=== PATIENT | female | born 1955 | race Caucasian/White ===

== ENCOUNTER → 2017-01-26 | Outpatient (CLI) | payer BC ==
[2016-11-20 14:08] VITALS: BP 133/46
[~2017-01-26] MED LIST: ASPI325T4 PO; CHOL4POW2 PO; CITA10TA4 PO; FLEC100T PO; METO25TA4 PO; Metoprolol Tartrate PO; PARO10TA24 PO
--- NOTE | 2017-01-26 14:16 | KCIC ---
Bilateral digital screening mammograms with CAD: HISTORY Routine screening. COMPARISON Comparison is made to previous examinations dated 12/24/2015 and 12/04/2014. FINDINGS Breast density category D. The skin and nipples show no abnormalities. No abnormal lymph nodes are seen in the axilla. The breast parenchyma is extremely dense. There is a small 8.6 millimeter circumscribed lesion seen in the left breast on obliques view approximately 2.5 centimeters deep to the nipple show no associated calcifications. This may represent a cyst but recommend further evaluation with ultrasound. There are no other dominant masses, suspicious calcifications or architectural distortions. IMPRESSION 8.6 millimeter circumscribed nodule deep to the nipple in the left breast. Recommend further evaluation with ultrasound. This study was interpreted with the benefit of Computerized Aided Detection (CAD). Mammography is not 100% sensitive in detecting breast cancer. Therefore, a self breast exam and a clinical breast exam are very important. A negative mammogram does not negate a clinically suspicious finding and should not result in a delay in biopsying a clinically suspicious abnormality. BI-RADS category 0: Incomplete. Ultrasound followup is recommended. This patient's information has been entered into a reminder system for the patient to be notified with the results of this examination and a target date for her next mammograms. Electronically signed by: Imelda Lyle MD (Jan 26, 2017 14:14:26)
== END | disposition home or self-care (01) ==
LOC: KCIC MAMMO 12:23
PROVIDERS: ATTEND Obstetrics & Gynecology
DX: Z12.31 Encounter for screening mammogram for malignant neoplasm of breast (principal)
CPT/HCPCS: G0202; 77067

== ENCOUNTER → 2017-02-01 | Outpatient (CLI) | payer BC ==
[2016-11-20 14:08] VITALS: BP 133/46
--- NOTE | 2017-02-01 13:32 | KCIC ---
PROCEDURE Left breast diagnostic ultrasound HISTORY Asymmetric tissue density on mammogram TECHNIQUE Sonographic examination of the left breast was performed and multiple static images were obtained. FINDINGS There is no focal abnormality. IMPRESSION Negative examination. Recommend patient have a 6 month followup left mammogram to assess stability. These results were given to the patient in person. ACR BI-RADS 3: Probably benign. Electronically signed by: Dom Bai MD (Feb 01, 2017 13:30:40)
== END | disposition home or self-care (01) ==
LOC: KCIC US 12:33
PROVIDERS: ATTEND Obstetrics & Gynecology
DX: R92.8 Other abnormal and inconclusive findings on diagnostic imaging of breast (principal)
CPT/HCPCS: 76641

== ENCOUNTER → 2017-08-03 | Outpatient (CLI) | payer BC ==
[2016-11-20 14:08] VITALS: BP 133/46
[~2017-08-03] MED LIST changes: -ASPI325T4 PO; +ASPI325T8 PO; -PARO10TA24 PO; +PARO10TA57 PO
--- NOTE | 2017-08-03 14:48 | KCIC ---
DATE: 08/03/2017 EXAM: MAMMO SHANNA DIAG LT HISTORY: 6 month follow-up COMPARISON: 01/26/2017 This study was interpreted with the benefit of Computerized Aided Detection (CAD). FINDINGS: Breast Density: HETERO The breast parenchyma Is heterogeneiously dense, which could reduce sensitivity of mammography. Breast parenchyma level C. On the MLO view is a well-defined oval density deep to the nipple is seen and appears unchanged. This is seen on shanna slice 14 . No new finding in the left breast is seen. IMPRESSION: Benign findings. A follow-up bilateral study is suggested in January, BI-RADS CATEGORY: 2 BENIGN FINDING(S) RECOMMENDED FOLLOW-UP: 6M 6 MONTH FOLLOW-UP PQRS compliance statement: Patient information was entered into a reminder system with a target due date 01/26/2018 for the next mammogram. Mammography is a sensitive method for finding small breast cancers, but it does not detect them all and is not a substitute for careful clinical examination. A negative mammogram does not negate a clinically suspicious finding and should not result in delay in biopsying a clinically suspicious abnormality. "Our facility is accredited by the [employer] Mammography [employer]."
== END | disposition home or self-care (01) ==
LOC: KCIC MAMMO 13:47
PROVIDERS: ATTEND Obstetrics & Gynecology
DX: R92.8 Other abnormal and inconclusive findings on diagnostic imaging of breast (principal)
CPT/HCPCS: G0206; G0279; 77061; 77065

== ENCOUNTER → 2018-02-09 | Outpatient (CLI) | payer BC | END | disposition home or self-care (01) | LOC: KCIC MAMMO 10:55 | DX: Z12.31 Encounter for screening mammogram for malignant neoplasm of breast (principal) | CPT/HCPCS: 77063; 77067 ==

== ENCOUNTER → 2018-02-23 | Outpatient (CLI) | payer BC | END | disposition home or self-care (01) | LOC: KCIC CT 08:43 | DX: M47.892 Other spondylosis, cervical region (principal); M48.02 Spinal stenosis, cervical region; R42 Dizziness and giddiness | CPT/HCPCS: 70450; 72125 ==

== ENCOUNTER → 2019-07-12 | Outpatient (CLI) | payer BC ==
[2017-08-25 15:00] VITALS: BP 124/53
--- NOTE | 2019-07-12 13:23 | KCIC ---
Bilateral digital screening mammograms with 3-D tomosynthesis: Reason for examination: Routine screening. Comparison is made to previous studies dated 02/09/2018 and 01/26/2017. Bilateral mammograms in CC and oblique projections were obtained with 2-D imaging and 3-D tomosynthesis imaging on a Siemens Inspiration unit and reviewed on the workstation. Interpretation was made with the benefit of CAD. The skin and nipples show no abnormalities. No abnormal axillary lymph nodes are seen. The breast parenchyma is extremely dense. (Breast density: Category D.) There are no dominant masses, suspicious calcifications or architectural distortion. Impression: No evidence of malignancy. Recommend routine screening. Your patient's mammogram demonstrates that she has dense breast tissue (breast density category C or D), which could hide abnormalities, and if she has other risk factors for breast cancer that have been identified, she might benefit from supplemental screening tests that may be suggested by you as her ordering physician. Dense breast tissue, in and of itself, is a relatively common condition. Therefore, this information is not provided to cause undue concern, but rather to raise your awareness and to promote discussion with your patient regarding the presence of other risk factors, in addition to dense breast tissue. Your patient's mammography results will be sent to her. BI-RAD Category 1: Negative. "Our facility is accredited by the [employer]amm[employer]." This patient's information has been entered into a reminder system for the patient to be notified with the results of her examination and a target date for the next mammogram. Electronically signed by: Arlette Lyle MD (07/12/2019 1:21 PM) [id number]
== END | disposition home or self-care (01) ==
LOC: KCIC MAMMO 10:47
PROVIDERS: ATTEND Obstetrics & Gynecology
DX: N64.89 Other specified disorders of breast (principal); Z12.31 Encounter for screening mammogram for malignant neoplasm of breast
CPT/HCPCS: 77063; 77067

== ENCOUNTER → 2020-07-15 | Outpatient (CLI) | payer BC ==
[2017-08-25 15:00] VITALS: BP 124/53
--- NOTE | 2020-07-15 11:11 | KCIC ---
EXAM: Bilateral digital screening mammogram with tomosynthesis. HISTORY: 65-year-old female presents for screening mammography. TECHNIQUE: Full-field digital craniocaudal and mediolateral oblique 2D and 3D tomosynthesis images of both breasts are obtained for evaluation. Computer aided detection with [employer] software version 9.3 was applied. COMPARISON: 07/12/2019 and 02/09/2018 BREAST PARENCHYMAL DENSITY: Level D - Extremely dense. FINDINGS: There is no new suspicious mass, microcalcification or region of architectural distortion. IMPRESSION: BI-RADS Category 2: Benign finding(s). RECOMMENDATION: Annual mammography is recommended. If your mammogram demonstrates that you have dense breast tissue, which could hide abnormalities, and if you have other risk factors for breast cancer that have been identified, you might benefit from supplemental screening tests that may be suggested by your ordering physician. Dense breast tissue, in and of itself, is a relatively common condition. This information is not provided to cause undue concern, but rather to raise your awareness and to promote discussion with your physician regarding the presence of other risk factors, in addition to dense breast tissue. A report of your mammography results will be sent to you and your physician. You should contact your physician if you have any questions or concerns regarding this report. Mammography is a sensitive method for finding small breast cancers, but it does not detect them all and is not a substitute for careful clinical examination. A negative mammogram does not negate a clinically suspicious finding and should not result in delay in biopsying a clinically suspicious abnormality. PQRS compliance statement - Patient information was entered into a reminder system with a target due date for the next mammogram. "Our facility is accredited by the [employer] Mammography [employer]." Electronically signed by: Magalie Sevilla MD (07/15/2020 11:08 AM) [email or web address]
== END | disposition home or self-care (01) ==
LOC: KCIC MAMMO 09:55
PROVIDERS: ATTEND Internal Medicine
DX: Z12.31 Encounter for screening mammogram for malignant neoplasm of breast (principal)
CPT/HCPCS: 77063; 77067

== ENCOUNTER → 2021-07-16 | Outpatient (CLI) | payer MEDICARE, BC ==
[2017-08-25 15:00] VITALS: BP 124/53
--- NOTE | 2021-07-17 17:46 | KCIC ---
Bilateral digital screening 2-D and 3-D mammogram: Reason for examination: Routine screening. Comparison: Mammograms from 07/15/2020 and 07/12/2019. Bilateral mammograms in CC and oblique projections were obtained with 2-D imaging and 3-D tomosynthes is imaging and reviewed on the workstation. Interpretation was made with the benefit of CAD. FINDINGS: Breast density: Category C. There is heterogeneously dense fibroglandular tissue, which may obscure s mall masses. No suspicious breast mass, malignant appearing calcifications, or architectural distortion is seen. IMPRESSION: No evidence of malignancy. . Assessment: BI-RADS 1. Negative. Recommendation: Routine screening mammograms. Your patient's mammogram demonstrates that she has dense breast tissue (breast density category C or D), which could hide abnormalities, and if she has other risk factors for breast cancer that have bee n identified, she might benefit from supplemental screening tests that may be suggested by you as her ordering physician. Dense breast tissue, in and of itself, is a relatively common condition. Therefo re, this information is not provided to cause undue concern, but rather to raise your awareness and t o promote discussion with your patient regarding the presence of other risk factors, in addition to d ense breast tissue. This patient's information has been entered into a reminder system for the patient to be notified wit h the results of her examination by mail and a target date for the next mammogram. A reminder letter will be generated. Electronically signed by: Anitra Canada MD (07/17/2021 5:43 PM) [email or web address]
== END ==
LOC: KCIC MAMMO 08:55
PROVIDERS: ATTEND Internal Medicine
DX: Z12.31 Encounter for screening mammogram for malignant neoplasm of breast (principal)
CPT/HCPCS: 77063; 77067